=== PATIENT | female | born 1975 | race American Indian/Alaskan Native ===

== ENCOUNTER 2017-09-04 11:34 | Emergency (ER) | payer OTHER ==
[2017-09-04] MEDS ORDERED: NORCO 5/325 PO ONE (14:55)
[2017-09-04] MEDS ORDERED: BOOSTRIX IM ONE (14:56)
[2017-09-04] MEDS ORDERED: XYLOCAINE 1% 20 mL INFILTRATI ONE (14:59)
[2017-09-04] MEDS ORDERED: TRIPLE ANTIBIOTIC TP ONE (16:15)
--- NOTE | 2017-09-04 16:22 | Emergency Department Report ---
ED Laceration HPI - HPI Chief Complaint: Extremity Injury, Upper Stated Complaint: RIGHT FINGER LACERATION Occurred When: Today Location: Upper Extremity (right ring finger) Severity: mild Tetanus Status: Not up to Date Laceration Symptoms: Yes Pain, No Foreign Body Sensation, No Numbness, No Weakness Other History: 42 year old female presents to ED with right finger laceration after cutting her finger with kitchen knife at 11am. patient is stable, neurologically intact and in no acute distress. patient states her tetanus is up to date. ED Review of Systems ROS: Stated complaint: RIGHT FINGER LACERATION Other details as noted in HPI Constitutional: denies: chills, fever Eyes: denies: eye pain, eye discharge, vision change ENT: denies: ear pain, throat pain Respiratory: denies: cough, shortness of breath, wheezing Cardiovascular: denies: chest pain, palpitations Endocrine: no symptoms reported Gastrointestinal: denies: abdominal pain, nausea, diarrhea Genitourinary: denies: urgency, dysuria, discharge Musculoskeletal: denies: back pain, joint swelling, arthralgia Skin: denies: rash, lesions Neurological: denies: headache, weakness, numbness, paresthesias, confusion, abnormal gait, vertigo Psychiatric: denies: anxiety, depression Hematological/Lymphatic: denies: easy bleeding, easy bruising ED Past Medical Hx - Past Medical History Previous Medical History?: No - Surgical History Additional Surgical History: FEET - Social History Smoking Status: Current Every Day Smoker - Medications Home Medications: Home Medications Medication Instructions Recorded Confirmed Last Taken Type Cephalexin [Keflex] 500 mg PO Q12HR #6 cap 09/04/17 Unknown Rx Laceration Physical Exam - Exam General: Vital signs noted. No distress. Alert and acting appropriately. Laceration Location: Upper Extremity Laceration Exam: Yes Normal Distal CMS, No Foreign Body, No Exposed Tendon, Vessel, or Nerve, No Tendon Injury ED Course Vital Signs 09/04/17 12:24 Temperature 98.6 F Pulse Rate 89 Respiratory 20 Rate Blood Pressure 109/70 O2 Sat by Pulse 100 Oximetry - Laceration /Wound Repair Right Anterior Proximal Palm Finger Wound Location: upper extremity Wound Length (cm): 3 Wound's Depth, Shape: linear Wound Explored: clean Irrigated w/ Saline (ccs): 50 Anesthesia: 1% Lidocaine Volume Anesthetic (ccs): 5 Wound Repaired With: sutures Suture Size/Type: 6:0 Number of Sutures: 4 Layer Closure?: No Sterile Dressing Applied?: Yes Progress: patient tolerated well ED Medical Decision Making - Medical Decision Making 42 year old female presents to ED with right finger laceration today after cutting self with knife while cooking. patient has tolerated sutures well. patient agrees and understands to return to ED for removal within 7-10 days. patient has had tetanus shot updated during ED visit. patient is stable, neurologically intact and in no acute distress. patient has full ROM of right finger and strong/intact radial pulse. patient has normal sensation in right hand. Critical care attestation.: If time is entered above; I have spent that time in minutes in the direct care of this critically ill patient, excluding procedure time. ED Disposition Clinical Impression: Laceration of finger, right Qualifiers: Encounter type: initial encounter Finger: middle finger Damage to nail status: without damage Foreign body presence: without foreign body Qualified Code(s): S61.212A - Laceration without foreign body of right middle finger without damage to nail, initial encounter Disposition: DC- TO HOME OR SELFCARE Is pt being admited?: No Does the pt Need Aspirin: No Condition: Stable Instructions: Suture Care (ED) Additional Instructions: Please return to ED within 7-10 days for suture removal. Prescriptions: Cephalexin [Keflex] 500 mg PO Q12HR #6 cap Referrals: PRIMARY CARE, [Primary Care Provider] - 3-5 Days Forms: Work/School Release Form(ED)
[2017-09-04 16:50] VITALS: BP 110/80
== END 2017-09-04 16:47 | disposition home or self-care (01) ==
LOC: ED 11:34
DX: S61.212A Laceration without foreign body of right middle finger without damage to nail, initial encounter (principal); F17.200 Nicotine dependence, unspecified, uncomplicated; W26.0XXA Contact with knife, initial encounter; Y93.89 Activity, other specified; Y92.89 Other specified places as the place of occurrence of the external cause; Y99.8 Other external cause status
CPT/HCPCS: 90471; 90715; A6250

== ENCOUNTER 2018-10-26 21:31 | Emergency (ER) | payer SELFPAY ==
[2018-10-26 21:55] VITALS: BP 120/78
--- NOTE | 2018-10-26 22:25 | Emergency Department Report ---
ED ENT HPI - General Chief complaint: Sore Throat Stated complaint: BODY PAIN Time Seen by Provider: 10/26/18 22:07 Source: patient Mode of arrival: Ambulatory Limitations: No Limitations - History of Present Illness Initial comments: 43-year-old -[place] female comes in reporting that she has voice hoarseness hurts to talk difficulty swallowing and cough 1 week. Patient reports that she has a productive cough of green and blood-tinged. Patient reports she had a fever nausea and vomiting 2 days ago. Patient reports that she's been taking [id number] NyQuil and Tylenol, teas and Advil without much resolution. MD complaint: sore throat, difficulty swallowing -: week(s) (1) Location: throat - Related Data Previous Rx's Medication Instructions Recorded Last Taken Type cephALEXin [Keflex] 500 mg PO Q12HR #6 cap 09/04/17 Unknown Rx Clindamycin [Clindamycin CAP] 300 mg PO Q8H #30 cap 10/26/18 Unknown Rx Prednisone [predniSONE 5 mg (6-Day 5 mg PO .TAPER #1 tab.ds.pk 10/26/18 Unknown Rx Pack, 21 Tabs)] traMADol [Ultram 50 MG tab] 50 mg PO Q6HR PRN #12 tablet 10/26/18 Unknown Rx Allergies Allergy/AdvReac Type Severity Reaction Status Date / Time aspirin Allergy Hives Verified 09/04/17 15:14 coconut Allergy Unknown Verified 10/26/18 21:55 cucumber Allergy Unknown Verified 10/26/18 21:55 ibuprofen [From Motrin] Allergy Unknown Verified 10/26/18 21:55 ED Dental HPI - General Chief complaint: Sore Throat Stated complaint: BODY PAIN Time Seen by Provider: 10/26/18 22:07 Source: patient Mode of arrival: Ambulatory Limitations: No Limitations - Related Data Previous Rx's Medication Instructions Recorded Last Taken Type cephALEXin [Keflex] 500 mg PO Q12HR #6 cap 09/04/17 Unknown Rx Clindamycin [Clindamycin CAP] 300 mg PO Q8H #30 cap 10/26/18 Unknown Rx Prednisone [predniSONE 5 mg (6-Day 5 mg PO .TAPER #1 tab.ds.pk 10/26/18 Unknown Rx Pack, 21 Tabs)] traMADol [Ultram 50 MG tab] 50 mg PO Q6HR PRN #12 tablet 10/26/18 Unknown Rx Allergies Allergy/AdvReac Type Severity Reaction Status Date / Time aspirin Allergy Hives Verified 09/04/17 15:14 coconut Allergy Unknown Verified 10/26/18 21:55 cucumber Allergy Unknown Verified 10/26/18 21:55 ibuprofen [From Motrin] Allergy Unknown Verified 10/26/18 21:55 ED Review of Systems ROS: Stated complaint: BODY PAIN Other details as noted in HPI ED Past Medical Hx - Past Medical History Previous Medical History?: No - Surgical History Past Surgical History?: Yes Additional Surgical History: FEET - Social History Smoking Status: Never Smoker - Medications Home Medications: Home Medications Medication Instructions Recorded Confirmed Last Taken Type cephALEXin [Keflex] 500 mg PO Q12HR #6 cap 09/04/17 Unknown Rx Clindamycin [Clindamycin CAP] 300 mg PO Q8H #30 cap 10/26/18 Unknown Rx Prednisone [predniSONE 5 mg (6-Day 5 mg PO .TAPER #1 tab.ds.pk 10/26/18 Unknown Rx Pack, 21 Tabs)] traMADol [Ultram 50 MG tab] 50 mg PO Q6HR PRN #12 tablet 10/26/18 Unknown Rx ED Physical Exam - General Limitations: No Limitations General appearance: alert, in no apparent distress - Head Head exam: Present: atraumatic, normocephalic - Eye Eye exam: Present: normal appearance, EOMI - Expanded ENT Exam Expanded Mouth exam: Present: muffled voice - Neck Neck exam: Present: tenderness (very tender to palpate guarding), full ROM, lymphadenopathy - Respiratory Respiratory exam: Present: normal lung sounds bilaterally. Absent: respiratory distress - Cardiovascular Cardiovascular Exam: Present: regular rate, normal rhythm. Absent: systolic murmur, diastolic murmur, rubs, gallop - Neurological Exam Neurological exam: Present: alert, oriented X3 - Psychiatric Psychiatric exam: Present: normal affect, normal mood - Skin Skin exam: Present: warm, dry, intact, normal color. Absent: rash ED Course Vital Signs 10/26/18 10/26/18 21:44 21:49 Temperature 98.3 F 98.3 F Pulse Rate 85 84 Respiratory 18 18 Rate Blood Pressure 120/78 120/78 O2 Sat by Pulse 98 98 Oximetry ED Medical Decision Making - Medical Decision Making Patient has been evaluated by this provider in fast track. Patient was given ibuprofen 600 mg for pain management I discussed the patient my concern for wanted to do a CT of her neck concerned that she has swelling and tenderness to her neck and guarding on my examination. Patient also had a fever earlier this week and this is been going on for 1 week. Patient declined having any further studies. I will cover patient with clindamycin steroids and tramadol for pain management. Have given patient information to follow up with her ear nose and throat provider. Given patient's precautions to return back to the emergency room if her symptoms persist or gets worse. Critical care attestation.: If time is entered above; I have spent that time in minutes in the direct care of this critically ill patient, excluding procedure time. ED Disposition Clinical Impression: Acute sore throat Disposition: - TO HOME OR SELFCARE Is pt being admited?: No Does the pt Need Aspirin: No Condition: Stable Instructions: Pharyngitis (ED) Additional Instructions: Please complete antibiotics as prescribed. Steroids as prescribed and pain medication as needed. It's very important for him to follow up with a provider if his symptoms persist or gets worse. Prescriptions: Clindamycin [Clindamycin CAP] 300 mg PO Q8H #30 cap Prednisone [predniSONE 5 mg (6-Day Pack, 21 Tabs)] 5 mg PO .TAPER #1 tab.ds.pk traMADol [Ultram 50 MG tab] 50 mg PO Q6HR PRN #12 tablet PRN Reason: Pain , Severe (7-10) Referrals: MERLYN DILLARD MD [Staff Physician] - 3-5 Days Forms: Accompanied Note, Work/School Release Form(ED)
[2018-10-26] MEDS ORDERED: ULTRAM PO ONE (22:29)
== END 2018-10-26 23:00 | disposition home or self-care (01) ==
LOC: ED 21:31
DX: J02.9 Acute pharyngitis, unspecified (principal)
CPT/HCPCS: 99282

== ENCOUNTER 2022-01-18 09:52 | Emergency (ER) | payer SELFPAY ==
[2022-01-18 10:07] VITALS: BP 110/66
[2022-01-18] MEDS ORDERED: HYDROcodone/ACETAMINOPHEN 5-325 MG TAB PO ONE (10:16)
--- NOTE | 2022-01-18 10:17 | Emergency Department Report ---
<KARO OLIVA - Last Filed: 01/18/22 11:16> ED Lower Extremity HPI - General Chief Complaint: Fall Stated Complaint: FELL RT ANKLE INJURY Time Seen by Provider: 01/18/22 10:13 Source: patient Mode of arrival: Ambulatory Limitations: No Limitations - History of Present Illness Initial Comments: 46-year-old female presents to the ER today with complaints of left ankle pain and injury. Patient states that yesterday afternoon around 6 PM her dog accidentally ran across her and she tripped over the dog causing her to fall. She states that when she fell she twisted her ankle and she felt a pop. She has been she is been having increased pain and swelling to the left ankle. She reports inability to bear weight on that ankle due to pain. She did take Tylenol without much relief. She denies any prior injury or surgical procedures to the right ankle. MD Complaint: ankle injury - Related Data Previous Rx's Medication Instructions Recorded Last Taken Type oxyCODONE /ACETAMINOPHEN [Percocet 1 tab PO Q4HR PRN #12 tab 01/18/22 Unknown Rx 5/325] Allergies Allergy/AdvReac Type Severity Reaction Status Date / Time aspirin Allergy Hives Verified 09/04/17 15:14 coconut Allergy Unknown Verified 10/26/18 21:55 cucumber Allergy Unknown Verified 10/26/18 21:55 ibuprofen [From Motrin] Allergy Unknown Verified 10/26/18 21:55 ED Review of Systems Comment: All other systems reviewed and negative Respiratory: denies: cough, shortness of breath, SOB with exertion, SOB at rest, wheezing Cardiovascular: denies: chest pain, palpitations Musculoskeletal: joint swelling, arthralgia Skin: denies: rash, lesions, change in color, change in hair/nails, pruritus Neurological: abnormal gait. denies: headache, weakness, numbness, paresthesias, confusion Psychiatric: denies: anxiety, depression, auditory hallucinations, visual hallucinations, homicidal thoughts, suicidal thoughts Hematological/Lymphatic: denies: easy bleeding, easy bruising, swollen glands ED Past Medical Hx - Surgical History Additional Surgical History: FEET - Social History Smoking Status: Never Smoker - Medications Home Medications: Home Medications Medication Instructions Recorded Confirmed Last Taken Type oxyCODONE /ACETAMINOPHEN [Percocet 1 tab PO Q4HR PRN #12 tab 03/26/22 Unknown Rx 5/325] ED Physical Exam - General Limitations: No Limitations General appearance: alert, in no apparent distress - Head Head exam: Present: atraumatic, normocephalic, normal inspection - Respiratory Respiratory exam: Present: normal lung sounds bilaterally. Absent: respiratory distress, wheezes, rales, rhonchi - Cardiovascular Cardiovascular Exam: Present: regular rate, normal rhythm, normal heart sounds - Expanded Lower Extremity Exam Left Ankle exam: Present: tenderness (Diffuse tenderness to the left ankle but more so medial aspect), swelling (Mild to moderate swelling mainly to the medial aspect of the ankle). Absent: full ROM (Range of motion of the ankle reduced due to pain), abrasion, laceration, ecchymosis, deformity, crepidus, dislocation, erythema, anterior draw sign Foot/Toe exam: Absent: tenderness, swelling, abrasion, laceration, ecchymosis, deformity, crepidus, dislocation, erythema, amputation, puncture wound, foreign body, tenderness at base of 5th metatarsal Neuro vascular tendon exam: Present: no vascular compromise. Absent: pulse deficit, abnormal cap refill, motor deficit, sensory deficit, tendon deficit Gait: Positive: not tested/not observed (Due to pain) - Neurological Exam Neurological exam: Present: alert, oriented X3, CN II-XII intact - Psychiatric Psychiatric exam: Present: normal affect, normal mood - Skin Skin exam: Present: intact - Orthopedic Splinting/Casting Injury #1 Side: left Lower Extremity Injury Location: ankle Lower Extremity Immobilizer: posterior splint Other Orthopedic Equipment: crutches Additional Comments: Patient tolerated procedure without any complication. Post splint placement shows patient is neurovascular intact. ED Lower Extremity MDM - Radiology Data Radiology results: report reviewed Patient Name: KRYSTEN ROMANO Gender: Female Date of : 1975 Referring Provider: KARO OLIVA Organization: 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 FINDINGS: Prominent soft tissue swelling is seen, particularly medially. An oblique fracture is seen through the metaphysis of the fibula with posterior displacement and angulation as well as mild overriding. The tibia is subluxed medially in respect to the talus though I do not clearly see a tibial fracture. A screw is seen in the great toe. Signer Name: Flaqiuto Schwab MD Signed: 01/18/2022 9:38 AM Workstation Name: [id number] - Medical Decision Making 1116: Xray reviewed and shows Prominent soft tissue swelling is seen, particularly medially. An oblique fracture is seen through the metaphysis of the fibula with posterior displacement and angulation as well as mild overriding. The tibia is subluxed medially in respect to the talus though I do not clearly see a tibial fracture. A screw is seen in the great toe. Discussed results with patient. She was placed in a short posterior splint and given crutches. Post splint placement shows neurovascular intact. Patient informed to follow-up with cash processing specialist. Patient expressed understanding agree with plan. Patient stable at discharge. ED Disposition Clinical Impression: Fracture of distal fibula Disposition: HOME / SELF CARE / HOMELESS Is pt being admited?: No Does the pt Need Aspirin: No Condition: Stable Instructions: Tibial and Fibular Fractures Additional Instructions: Do not remove the splint or get it wet. Use a crutch to help you ambulate. Try to avoid bearing weight on that ankle. Elevate your leg as often as possible. Take the pain medication as prescribed. Follow-up with cash processing specialist next week. Return to the ER if your symptoms changes or worsens in any way. Prescriptions: HYDROcodone/APAP 5-325 [Jbphh 5/325] 1 each PO Q4HR PRN #10 tablet PRN Reason: Pain Referrals: AMI HERRING MD [Primary Care Provider] - 3-5 Days ZOILA POOLE MD [Staff Physician] - 3-5 Days (Senior Maintenance Technician) Forms: Work/School Release Form(ED) Time of Disposition: 11:12 <RAY CHEN - Last Filed: 01/18/22 11:44> ED Review of Systems ROS: Stated complaint: FELL RT ANKLE INJURY Other details as noted in HPI ED Course Vital Signs 01/18/22 09:59 Temperature 98.6 F Pulse Rate 100 H Respiratory 20 Rate Blood Pressure 110/66 [Right] O2 Sat by Pulse 97 Oximetry ED Lower Extremity MDM - Medical Decision Making Patient evaluated by myself at the bedside after splint application. Patient states she has had swelling, pain, and numbness since the fall last night. Patient looked up her injury on YouTube and suspected she had a strain and therefore was putting pressure on it throughout the night. After splint application patient still endorses numbness and pain which was present before splint application. Patient received Jbphh 5 mg without significant improvement prior to my evaluation. I instructed Karo to provide Percocet and prescribed Percocet for discharge. Critical care attestation.: If time is entered above; I have spent that time in minutes in the direct care of this critically ill patient, excluding procedure time. ED Disposition Is pt being admited?: No
--- NOTE | 2022-01-18 11:33 | XRay Report ---
LEFT ANKLE 3 VIEWS 1033 INDICATION: Fall/pain/injury COMPARISON: None available. FINDINGS: Prominent soft tissue swelling is seen, particularly medially. An oblique fracture is seen through the metaphysis of the fibula with posterior displacement and angulation as well as mild overr iding. The tibia is subluxed medially in respect to the talus though I do not clearly see a tibial fr acture. A screw is seen in the great toe. Signer Name: Flaquito Schwab MD Signed: 01/18/2022 10:38 AM Workstation Name: [id number]
[2022-01-18] MEDS ORDERED: oxyCODONE /ACETAMINOPHEN 5-325MG TAB PO ONE (11:38)
== END 2022-01-18 12:09 | disposition home or self-care (01) ==
LOC: ED 09:52
DX: S82.832A Other fracture of upper and lower end of left fibula, initial encounter for closed fracture (principal); W18.39XA Other fall on same level, initial encounter; Y93.89 Activity, other specified; Y92.89 Other specified places as the place of occurrence of the external cause; Y99.8 Other external cause status; Z88.6 Allergy status to analgesic agent; Z88.5 Allergy status to narcotic agent; Z91.018 Allergy to other foods; Z79.899 Other long term (current) drug therapy
CPT/HCPCS: 99283